=== PATIENT | female | born 1970 | race Two or more races ===

== ENCOUNTER 2019-06-11 13:34 | Inpatient (IN) | payer OTHER ==
[~2019-06-11] VITALS: Ht 160 cm; Wt 60.9 kg
[2019-06-11] MEDS ORDERED: IV NS 0.9% 1,000 ML BAG IV ONE ×2 (14:30→16:00)
[2019-06-11 14:57] LABS: BASOPHILS % (AUTO) 0.5 % (0.0-2.0); EOSINOPHILS % (AUTO) 0.7 % (0.0-6.0); HEMATOCRIT 41 % (33-45); LYMPHOCYTES # (AUTO) 3.5 /CMM (0.8-4.8); LYMPHOCYTES % (AUTO) 43.5 % (20.0-44.0); MEAN CORPUSCULAR HGB CONC 35 g/dl (31.0-36.0); MEAN CORPUSCULAR VOLUME 99 fL (82-100); MONOCYTES # (AUTO) 0.6 /CMM (0.1-1.30); NEUTROPHILS # (AUTO) 3.9 /CMM (1.8-8.9); NEUTROPHILS % (AUTO) 48.3 % (43.0-81.0); PLATELET COUNT (AUTO) 144 /CMM (150-450); WHITE BLOOD COUNT (AUTO) 8.1 K/uL (4.3-11.0)
[2019-06-11 15:03] LABS: CALCIUM, SERUM 9.7 mg/dL (8.5-10.1); CREATININE 0.8 mg/dL (0.6-1.3); POTASSIUM 4.6 mmol/L (3.5-5.1)
[2019-06-11 15:09] LABS: ALBUMIN 3.8 g/dL (3.4-5.0); BILIRUBIN,DIRECT 0.1 mg/dL (0.0-0.2); BILIRUBIN,TOTAL 0.6 mg/dL (0.2-1.0); TOTAL PROTEIN, SERUM 7.8 g/dL (6.4-8.2)
[2019-06-11] MEDS ORDERED: ONDANSETRON HCL/PF 4 MG/2 ML VIAL IVP ONE (16:00)
[2019-06-11] MEDS ORDERED: diphenhydrAMINE HCL 50 MG/ML VIAL IV ONE (16:00)
[2019-06-11] MEDS ORDERED: IBUPROFEN 600 MG TABLET PO ONE ×2 (16:00→16:37)
[2019-06-11] MEDS ORDERED: ACET-2030 PO (16:11)
--- NOTE | 2019-06-11 16:34 | NUR ---
[facility].
--- NOTE | 2019-06-11 16:34 | NUR ---
CALLED NURSING SUP FOR BED.
[2019-06-11] MEDS ORDERED: diphenhydrAMINE HCL 50 MG/ML VIAL ONE (16:36)
[2019-06-11] MEDS ORDERED: ONDANSETRON HCL/PF 4 MG/2 ML VIAL ONE (16:36)
--- NOTE | 2019-06-11 16:56 | NUR ---
Vandana rosales in [facility] - 06/11/19 at 1657 by NIK NURSING SUP [facility] BED [phone].
--- NOTE | 2019-06-11 16:57 | NUR ---
NURSING SUP GAVE MED/SURG BED [phone].
--- NOTE | 2019-06-11 17:09 | NUR ---
CORRECTION, PT GOING TO [phone].
[2019-06-11] MEDS ORDERED: IOHEXOL-350 100 ML VIAL IV ONE (17:16)
[2019-06-11] MEDS ORDERED: IV NS 0.9% 250 ML IV ONE (17:16)
[2019-06-11] MEDS ORDERED: CT SWABBABLE VALVE TRANS SET 1 EA INFUS.SET MC ONE (17:16)
--- NOTE | 2019-06-11 17:19 | NUR ---
REPORT GIVEN TO DECEMBER RN
[2019-06-11] MEDS ORDERED: ONDANSETRON HCL/PF 4 MG/2 ML VIAL IVP PRN (17:30)
[2019-06-11] MEDS ORDERED: MAGNESIUM HYDROXIDE 30 ML UDC PO PRN (17:30)
[2019-06-11] MEDS ORDERED: HYDROCODONE/APAP 5/325MG 1 EACH TABLET PO PRN (17:30)
[2019-06-11] MEDS ORDERED: MAG HYDROX/AL HYDROX/SIMETH 30 ML UDC PO PRN (17:30)
[2019-06-11] MEDS ORDERED: ACETAMINOPHEN 325 MG TABLET PO PRN (17:30)
[2019-06-11] MEDS ORDERED: ZOLPIDEM TARTRATE 5 MG TABLET PO PRN (17:30)
[2019-06-11] MEDS ORDERED: Z GUARD REMEDY 2 OZ OINT TP PRN (17:30)
--- NOTE | 2019-06-11 18:24 | NUR ---
PT IN CT RE STARTED IV LEFT AC 20G AND LEFT WRIST 20G
--- NOTE | 2019-06-11 18:59 | NUR ---
PT BACK FROM CT EATING DINNER WITH FAMILY AT BEDSIDE
--- NOTE | 2019-06-11 19:31 | NUR ---
PT TRANSPORTED UP VIA ACLS PROTOCOL
--- NOTE | 2019-06-11 19:35 | NUR ---
RN MS OPENING NOTES Received Pt. from ER via o[place]. Family at bedside. Patient is alert and oriented x2, verbally responsive, able to make needs known. Confused as to where she is. Speech is slightly slow and slurred but able to be understood. Per sister, her speech has been like that for 2 weeks now. Breathing even and unlabored. No SOB noted. Tolerating room air. IV on left AC and left wrist intact and patent. Denies pain or discomfort. States that pain medication from ER helped. Skin check rendered with no skin issues noted. Patient is ambulatory with 1 person assist/standby. Bedside commode provided. Oriented to the use of unit amenities. Instructed on the use of call light. Belongings accounted for. All other needs attended to. Safety measures in place. Call light within reach. Will continue to monitor.
[2019-06-11 20:00] VITALS: BP 117/72
[2019-06-12 03:07] LABS: APPEARANCE,URINE Clear (CLEAR); BILIRUBIN,URINE Negative (NEGATIVE); BLOOD, URINE Trace-intact Ery/uL (NEGATIVE); COLOR,URINE Yellow (YELLOW); KETONES,URINE Negative (NEGATIVE); LEUKOCYTE ESTERASE ,URINE Negative (NEGATIVE); NITRITE, URINE Negative (NEGATIVE); PROTEIN,URINE Negative (NEGATIVE); UGLUCOSE Negative (NEGATIVE); UROBILINOGEN,URINE 0.2 EU/dL (0.2)
[2019-06-12 04:06] LABS: BACTERIA,URINE Few /HPF (None Seen); RBC,URINE 0-2 /HPF (0-2); SQUAMOUS EPITHELIAL CELL,UR Few /HPF (None Seen)
--- NOTE | 2019-06-12 06:44 | NUR ---
RN MS CLOSING NOTES PATIENT RESTING IN BED. NO ACUTE CHANGES THROUGHOUT SHIFT. BREATHING EVEN AND UNLABORED. NO SOB NOTED - ON ROOM AIR. NO COMPLAINTS OF PAIN OR DISCOMFORT. IV ON LEFT WRIST/AC INTACT AND PATENT. REMAINED AFEBRILE. KEPT CLEAN DRY AND COMFORTABLE. ALL OTHER NEEDS ATTENDED TO. SAFETY MEASURES IN PLACE. CALL LIGHT WITHIN REACH. WILL ENDORSE TO ONCOMING NURSE FOR RILEY.
--- NOTE | 2019-06-12 06:45 | NUR ---
FYI: PATIENT ABLE TO AMBULATE TO RESTROOM WITH STAND BY ASSIST. REFUSES BEDSIDE COMMODE.
[2019-06-12 07:00] VITALS: BP 110/53
[2019-06-12 07:21] LABS: BASOPHILS % (AUTO) 0.2 % (0.0-2.0); EOSINOPHILS % (AUTO) 0.5 % (0.0-6.0); HEMATOCRIT 38 % (33-45); HEMOGLOBIN 12.9 g/dL (11.5-14.8); LYMPHOCYTES # (AUTO) 2.8 /CMM (0.8-4.8); LYMPHOCYTES % (AUTO) 40.8 % (20.0-44.0); MEAN CORPUSCULAR HGB CONC 34 g/dl (31.0-36.0); MEAN CORPUSCULAR VOLUME 99 fL (82-100); MONOCYTES # (AUTO) 0.5 /CMM (0.1-1.30); MONOCYTES % (AUTO) 7.4 % (2.0-12.0); NEUTROPHILS # (AUTO) 3.5 /CMM (1.8-8.9); NEUTROPHILS % (AUTO) 51.1 % (43.0-81.0); PLATELET COUNT (AUTO) 184 /CMM (150-450); RED BLOOD CELL COUNT(AUTO) 3.89 MIL/uL (4.0-5.2); WHITE BLOOD COUNT (AUTO) 6.8 K/uL (4.3-11.0)
--- NOTE | 2019-06-12 07:23 | NUR ---
RN OPENING NOTE PT WAS RECEIVED IN BED AT LOWEST AND LOCKED POSITION WITH SIDE RAILS UP X2, A/O X2 CONFUSED WITH SLIGHT SLURRED SPEECH, BREATHING EVEN AND UNLABORED ON RA WITH NO S/S OF ANY DISTRESS OR PAIN ATY THIS TIME, IV IS PATENT AND INTACT, NOTED TO BE AMBULATORY WITH ASSIST, SAFETY PRECAUTIONS IN PLACE, CALL LIGHT WITHIN REACH, WILL MONITOR ACCORDINGLY
[2019-06-12 07:39] LABS: CALCIUM, SERUM 8.7 mg/dL (8.5-10.1); CREATININE 0.7 mg/dL (0.6-1.3); MAGNESIUM 2.2 mg/dL (1.8-2.4); PHOSPHORUS 3.9 mg/dL (2.5-4.9); POTASSIUM 3.8 mmol/L (3.5-5.1)
[2019-06-12] MEDS: ASPIRIN EC 325 MG TABLET.DR PO SCH (08:03)
--- NOTE | 2019-06-12 12:40 | NUR ---
RN NOTE CALL RECEIVED FROM [facility] FROM REGARDING MRI WITHOUT CONTRAST THAT WAS DONE. WAS INFORMED THAT PATIENT DOES HAVE SOME SLIGHT SWELLING IN THE BRAIN BUT THAT IT IS NOT INDICATIVE OF STROKE BUT INSTEAD CAN BE FROM POSSIBLE OVERDOSE. HE WAS INFORMED THAT NO TOXICOLOGY SCREENING WAS DONE UPON ADMISSION. RESULTS OF MRI WERE RELAYED TO DR. VILLALOBOS WHO ORDERED EEG AND MRI OF BRAIN WITH CONTRAST AND THAT PATIENT MAY REQUIRE POSSIBLE LUMBAR PUNCTURE. ORDERS IMPLEMENTED AND CARRIED OUT. WILL MONITOR ACCORDINGLY
--- NOTE | 2019-06-12 14:26 | NUR ---
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 MESSAGE SENT TO , WILL AWAIT FOR ANY NEW ORDERS.
--- NOTE | 2019-06-12 15:17 | NUR ---
RN NOTE CALLED RECEIVED FROM FOR STAT LUMBAR PUNCTURE. RADIOLOGY CALLED AND INFORMED OF STAT ORDER. PER RADIOLOGY NEED STAT PTT AND PT/INR. WILL IMPLEMENT ORDERS AND CARRY OUT
--- NOTE | 2019-06-12 15:46 | NUR ---
RN NOTE CALL RECEIVED FROM RADIOLOGY MIRIAM WHO STATED THAT THE RADIOLOGIST WILL NOT BE ABLE TO DO LUMBAR PUNCTURE AFTER 4 PM IF RESULTS FOR PTT AND PT/INR ARE NOT POSTED BY THEN. WILL INFORM NEUROLOGIST AND WILL CONTINUE TO MONITOR ACCORDINGLY
[2019-06-12 16:08] VITALS: BP 108/64
--- NOTE | 2019-06-12 16:12 | NUR ---
RN NOTE CALL RECEIVED FROM RADIOLOGIST WHO STATED THAT HE CANNOT DO THE PROCEDURE TILL TOMORROW DUE TO ANTICOAG RESULTS STILL PENDING AND ALSO BECAUSE THEY ARE SHORT STAFFED. RADIOLOGIST STATED THAT PROCEDURE WILL BE INSTEAD DONE TOMORROW AM.
[2019-06-12] MEDS ORDERED: GADOTERIDOL 279.3 MG/ML VIAL IV ONE (16:34)
--- NOTE | 2019-06-12 17:30 | NUR ---
RN NOTE INFORMED BY MACHINERY MECHANIC DIANE THAT WILL BE COMING AROUND 7 TO PERFORM THE LUMBAR PUNCTURE AND THAT THE PATIENT WILL BE ISOLATION PRECAUTIONS FOR NOW
--- NOTE | 2019-06-12 18:41 | NUR ---
RN CLOSING NOTE PT IN BED AT LOWEST AND LOCKED POSITION WITH SIDE RAILS UP X2, A/O X2-3 CONFUSED, BREATHING EVEN AND UNLABORED ON RA WITH NO S/S OF ANY DISTRESS OR PAIN AT THIS TIME, IV IS PATENT AND INTACT, SAFETY PRECAUTIONS IN PLACE, CALL LIGHT WITHIN REACH, ALL NEEDS ATTENDED TO, WILL ENDORSE TO NIGHT RN FOR RILEY.
[2019-06-12 20:00] VITALS: BP 105/63
--- NOTE | 2019-06-12 20:09 | NUR ---
MS/RN PATIENT IS AWAKE, ALERT, ORIENTED, COMFORTABLE, NO C/O PAIN, NO DISTRESS NOTED, CALL LIGHT IN REACH, FAMILY MEMBERS AT BEDSIDE, WILL MONITOR.
[2019-06-12] MEDS ORDERED: QUETIAPINE FUMARATE 25 MG TABLET PO ONE (22:00)
--- NOTE | 2019-06-12 23:04 | NUR ---
MS/RN AT AROUND 2029, ASSISTER DR. MITA CANO FOR LUMBAR PUNCTURE WHICH THE PATIENT TOLERATED WELL. CSF SPECIMEN WAS BROUGHT BY MYSELF TO LAB.
--- NOTE | 2019-06-12 23:08 | NUR ---
MS/RN PATIENT REFUSED THE SEROQUEL, PER PATIENT SHE WILL LET ME KNOW IF SHE WANTS IT LATER.
[2019-06-12 23:12] LABS: CSF GLUCOSE 47 mg/dL (40-70); CSF PROTEIN 52.1 mg/dL (15-45)
--- NOTE | 2019-06-13 00:38 | NUR ---
MS/RN NOTIFIED DR. MITA CANO THE CSF TEST RESULTS. NO ORDERS RECEIVED.
--- NOTE | 2019-06-13 00:39 | NUR ---
MS/RN PATIENT IS SLEEPING AT THIS TIME, APPEAR COMFORTABLE, NO SIGNS OF DISTRESS NOTE, CALL LIGHT IN REACH. WILL MONITOR.
--- NOTE | 2019-06-13 06:19 | NUR ---
MS/RN STILL SLEEPING, APPEAR COMFORTABLE, NO SIGNS OF DISTRESS NOTED, CALL LIGHT IN REACH. ALL NEEDS ATTENDED AT THIS TIME, WILL CONTINUE TO MONITOR.
[2019-06-13 06:30] LABS: BASOPHILS % (AUTO) 0.1 % (0.0-2.0); EOSINOPHILS % (AUTO) 0.5 % (0.0-6.0); HEMATOCRIT 37 % (33-45); HEMOGLOBIN 12.8 g/dL (11.5-14.8); LYMPHOCYTES # (AUTO) 2.6 /CMM (0.8-4.8); LYMPHOCYTES % (AUTO) 40.8 % (20.0-44.0); MEAN CORPUSCULAR HGB CONC 34 g/dl (31.0-36.0); MEAN CORPUSCULAR VOLUME 98 fL (82-100); MONOCYTES # (AUTO) 0.5 /CMM (0.1-1.30); MONOCYTES % (AUTO) 8.2 % (2.0-12.0); NEUTROPHILS # (AUTO) 3.3 /CMM (1.8-8.9); NEUTROPHILS % (AUTO) 50.4 % (43.0-81.0); PLATELET COUNT (AUTO) 183 /CMM (150-450); RED BLOOD CELL COUNT(AUTO) 3.83 MIL/uL (4.0-5.2); WHITE BLOOD COUNT (AUTO) 6.5 K/uL (4.3-11.0)
[2019-06-13 06:37] LABS: CALCIUM, SERUM 8.8 mg/dL (8.5-10.1); CREATININE 0.6 mg/dL (0.6-1.3); POTASSIUM 3.7 mmol/L (3.5-5.1)
--- NOTE | 2019-06-13 07:15 | NUR ---
RN OPENING NOTE PT WAS RECEIVED IN BED AT LOWEST AND LOCKED POSITION WITH SIDE RAILS UP X2, A/O X2 CONFUSED WITH SLIGHT SLURRED SPEECH, BREATHING EVEN AND UNLABORED ON RA WITH NO S/S OF ANY DISTRESS OR PAIN AT THIS TIME, IV IS PATENT AND INTACT, NOTED TO BE AMBULATORY WITH ASSIST, ON ISOLATION PRECAUTIONS, SAFETY PRECAUTIONS IN PLACE, CALL LIGHT WITHIN REACH, WILL MONITOR ACCORDINGLY
[2019-06-13 08:00] VITALS: BP 114/72
[2019-06-13] MEDS: ASPIRIN EC 325 MG TABLET.DR PO SCH (08:01)
[2019-06-13] MEDS ORDERED: ACYCLOVIR IV 1 GM in IV NS 0.9% 250 ML IV SCH (08:30)
[2019-06-13] MEDS ORDERED: VANCOMYCIN 1 GM in IV NS 0.9% 250 ML IV SCH (08:30)
[2019-06-13] MEDS ORDERED: FEE PK DOSING 1 MIN EA MC ONE ×2 (08:41)
[2019-06-13] MEDS: CEFTRIAXONE 2 G in IV D5W 100 ML IV SCH (09:59)
[2019-06-13] MEDS: VANCOMYCIN 1 GM in IV D5W 250 ML IV SCH ×2 (10:46→17:31)
[2019-06-13] MEDS ORDERED: ACYCLOVIR IV SCH (12:00)
[2019-06-13] MEDS ORDERED: D5W IV SCH (12:00)
--- NOTE | 2019-06-13 12:51 | NUR ---
SW received a call from sample case porter Peggy stating pt's family is requesting a verification of admission letter for pt's employer. SW typed letter and gave copy to pt's family bedside per their request.
[2019-06-13 16:00] VITALS: BP 83/61
--- NOTE | 2019-06-13 18:43 | NUR ---
RN CLOSING NOTE PT IN BED AT LOWEST AND LOCKED POSITION WITH SIDE RAILS UP X2, A/O X2 CONFUSED WITH SLIGHT SLURRED SPEECH, BREATHING EVEN AND UNLABORED ON WITH NO DISTRESS OR PAIN AT THIS TIME, IV IS PATENT AND INTACT, FAMILY AT BEDSIDE, SAFETY PRECAUTIONS IN PLACE, CALL LIGHT WITHIN REACH, ALL NEEDS ATTENDED TO, WILL ENDORSE TO NIGHT RN FOR RILEY.
--- NOTE | 2019-06-13 20:09 | NUR ---
MS/RN AT 1930, RECEIVED PATIENT IN BED AWAKE, ALERT, ORIENTED, COMFORTABLE, NO C/O ANY PAIN, NO DISTRESS NOTED, CALL LIGHT IN REACH, FALL PRECAUTION PER PROTOCOL, WILL MONITOR.
[2019-06-13 20:18] VITALS: BP 101/40
[2019-06-13] MEDS: ACYCLOVIR IV 500 MG in IV D5W 100 ML IV SCH (21:03)
[2019-06-14] MEDS: VANCOMYCIN 1 GM in IV D5W 250 ML IV SCH ×3 (01:53→10:00)
[2019-06-14] MEDS: ACYCLOVIR IV 500 MG in IV D5W 100 ML IV SCH ×3 (04:55→21:00)
--- NOTE | 2019-06-14 05:49 | NUR ---
MS/RN PATIENT REFUSED MORNING CARE, REFUSED BED SHEET CHANGE.
--- NOTE | 2019-06-14 06:21 | NUR ---
MS/RN PATIENT IS STILL SLEEPING AT THIS TIME, APPEAR COMFORTABLE, NO SIGNS OF DISTRESS NOTED, CALL LIGHT IN REACH. ALL NEEDS ATTENDED AT THIS TIME, WILL CONTINUE TO MONITOR.
[2019-06-14 06:46] LABS: CALCIUM, SERUM 8.9 mg/dL (8.5-10.1); CREATININE 0.7 mg/dL (0.6-1.3); POTASSIUM 3.8 mmol/L (3.5-5.1)
--- NOTE | 2019-06-14 07:44 | NUR ---
MS RN OPENING NOTES RECEIVED PT SITTING UP IN BED, AWAKE, ALERT AND ORIENTED X3. RESPIRATIONS ARE EVEN AND UNLABORED, NOT IN ANY ACUTE DISTRESS NOTED. DENIES ANY PAIN AT THIS TIME, NO SOB, N/V. IV SITE TO LAC/L WRIST G20 INTACT, NO INFILTRATION NOTED. DRESSING KEPT CLEAN AND DRY. SAFETY MEASURES ARE IN PLACE. INSTRUCTED PT TO USE CALL LIGHT WHEN ASSISTANCE IS NEEDED, CALL LIGHT IS LEFT WITHIN REACH. WILL MONITOR THROUGHOUT SHIFT FOR CONTINUITY OF CARE.
[2019-06-14 08:00] VITALS: BP 82/52
[2019-06-14] MEDS: DEXAMETHASONE SOD PHOSPHATE 10 MG/ML VIAL IV SCH (08:22)
[2019-06-14] MEDS: ASPIRIN EC 325 MG TABLET.DR PO SCH (08:22)
[2019-06-14] MEDS: CEFTRIAXONE 2 G in IV D5W 100 ML IV SCH (08:22)
--- NOTE | 2019-06-14 10:00 | NUR ---
MS RN NOTES-- VANCO TROUGH CAME BACK AT 36. VANCO WITHHELD. WAITING FOR PHARMACY TO DOSE.
[2019-06-14 12:07] LABS: HIV SCRN 4G wRFX Non Reactive (Non Reactive)
--- NOTE | 2019-06-14 12:21 | NUR ---
MS RN NOTES-- PT ABLE TO MAKE NEEDS KNOWN, NEEDS MET AND ANTICIPATED. PT DOES NOT APPEAR TO BE IN ANY APPARENT DISTRESS. REMINDED PT TO USE CALL LIGHT WHEN ASSISTANCE IS NEEDED, CALL LIGHT IS LEFT WITHIN REACH. WILL CONTINUE TO MONITOR THROUGHOUT SHIFT FOR CONTINUITY OF CARE.
--- NOTE | 2019-06-14 13:34 | NUR ---
MS RN NOTES-- CLARIFIED NPO ORDER WITH DR. WESLEY. RELAYED US ABD RESULTS W/ ORDERS TO RESUME DIET.
[2019-06-14 16:00] VITALS: BP 96/54
--- NOTE | 2019-06-14 18:02 | NUR ---
MS RN NOTES-- NEW PERIPHERAL IV INSERTED TO RIGHT HAND G22. NO INFILTRATION. DRESSING KEPT CLEAN AND DRY. WILL CONTINUE TO MONITOR.
--- NOTE | 2019-06-14 18:41 | NUR ---
MS RN CLOSING NOTES ALL DUE MEDS GIVEN, NEEDS MET AND RENDERED. PT IS A/O X2-3, W/ PERIODS OF CONFUSION/FORGETFULNESS. AFEBRILE. RESPIRATIONS ARE EVEN AND UNLABORED, NOT IN ANY ACUTE DISTRESS NOTED. PT DENIES ANY PAIN AT THIS TIME, NO C/O SOB, N/V. IV SITE TO L HAND INTACT, NO INFILTRATION NOTED. DRESSING KEPT CLEAN AND DRY. SAFETY MEASURES ARE IN PLACE. REMINDED PT TO USE CALL LIGHT WHEN ASSISTANCE IS NEEDED, CALL LIGHT IS LEFT WITHIN REACH. WILL ENDORSE TO NEXT SHIFT FOR CONTINUITY OF CARE.
--- NOTE | 2019-06-14 19:30 | NUR ---
RN NOTES RECEIVED PT. AWAKE O BED, A/OX2-3, FAMILY AT BEDSIDE, ROMANSH/ENGLISH SPEAKING, NOT IN DISTRESS, NO PAIN NOTED, CALL LIGHT WITHIN REACH, SIDERAILSUPX2, CONTINUE TO MONITOR
[2019-06-14 20:00] VITALS: BP 111/65
[2019-06-14] MEDS ORDERED: VANCOMYCIN 0.75 GM in IV D5W 250 ML IV SCH (21:00)
[2019-06-14] MEDS ORDERED: CEFTRIAXONE 2 G in IV D5W 100 ML IV SCH (21:00)
--- NOTE | 2019-06-14 22:00 | NUR ---
RN NOTES PT. PULLED OUT HER IV LINE- ...NEW IV LINE INSERTED ON THE RIGHT FOREARM GAUGE 22
[2019-06-15] MEDS: ACYCLOVIR IV 500 MG in IV D5W 100 ML IV SCH (05:15)
--- NOTE | 2019-06-15 06:33 | NUR ---
RN NOTES SLEEPING BUT AROUSABLE, MORNING CARE RENDERED, NOT IN DISTRESS, NO PAIN NOTED, SIDERAILSUPX2, PT. NEEDS ATTENDED
[2019-06-15 06:55] LABS: CALCIUM, SERUM 8.7 mg/dL (8.5-10.1); CREATININE 0.7 mg/dL (0.6-1.3); POTASSIUM 3.9 mmol/L (3.5-5.1)
--- NOTE | 2019-06-15 07:24 | NUR ---
MS RN OPENING NOTES RECEIVED PT LAYING IN BED, AWAKE, ALERT AND ORIENTED X2. RESPIRATIONS ARE EVEN AND UNLABORED, NOT IN ANY ACUTE DISTRESS NOTED. DENIES ANY PAIN AT THIS TIME, NO SOB, N/V. IV SITE TO RFA G22 INTACT, NO INFILTRATION NOTED. DRESSING KEPT CLEAN AND DRY. SAFETY MEASURES ARE IN PLACE. INSTRUCTED PT TO USE CALL LIGHT WHEN ASSISTANCE IS NEEDED, CALL LIGHT IS LEFT WITHIN REACH. WILL MONITOR THROUGHOUT SHIFT FOR CONTINUITY OF CARE.
[2019-06-15 08:00] VITALS: BP 104/65
[2019-06-15 08:06] LABS: CANCER AG, 125 17.5 U/mL (0.0-38.1); CANCER AG, 15-3 17.1 U/mL (0.0-25.0)
[2019-06-15] MEDS: ASPIRIN EC 325 MG TABLET.DR PO SCH (08:17)
[2019-06-15] MEDS: DEXAMETHASONE SOD PHOSPHATE 10 MG/ML VIAL IV SCH (08:18)
[2019-06-15 09:07] LABS: *WEST NILE VIRUS IgG, CSF Positive (Negative)
[2019-06-15 11:09] LABS: *WEST NILE VIRUS IgM, CSF Negative (Negative); VDRL, CSF Non Reactive (Non Rea:<1:1)
--- NOTE | 2019-06-15 13:36 | NUR ---
MS RN NOTES-- PT ABLE TO MAKE NEEDS KNOWN BUT CAN BE CONFUSED AT TIMES. FAMILY IS AT BEDSIDE. PT DOES NOT APPEAR TO BE IN ANY APPARENT DISTRESS. WILL CONTINUE TO MONITOR.
[2019-06-15] MEDS: VALACYCLOVIR HCL 500 MG TABLET PO SCH ×2 (14:36→16:20)
[2019-06-15 16:15] VITALS: BP 85/47
--- NOTE | 2019-06-15 18:19 | NUR ---
MS SULLIVAN NOTES-- RECEIVED A CALL FROM ALBER AT [facility] TRANSFER UNIT [phone] OPT 3. NOTIFIED DERIK HARMON. Addendum: 06/15/19 at 1825 by PATRIZIA KNAPP RN PER ALBER FROM [facility], "THERES NOT INDICATION FOR TRANSFER, WE ARE CANCELLING THE REFERRAL."
--- NOTE | 2019-06-15 18:28 | NUR ---
MS SULLIVAN CLOSING NOTES ALL DUE MEDS GIVEN, NEEDS MET AND RENDERED. PT IS A/O X2-3, W/ PERIODS OF CONFUSION/FORGETFULNESS. AFEBRILE. RESPIRATIONS ARE EVEN AND UNLABORED, NOT IN ANY ACUTE DISTRESS NOTED. PT DENIES ANY PAIN AT THIS TIME, NO C/O SOB, N/V. IV SITE TO L HAND INTACT, NO INFILTRATION NOTED. DRESSING KEPT CLEAN AND DRY. SAFETY MEASURES ARE IN PLACE. REMINDED PT TO USE CALL LIGHT WHEN ASSISTANCE IS NEEDED, CALL LIGHT IS LEFT WITHIN REACH. WILL ENDORSE TO NEXT SHIFT FOR CONTINUITY OF CARE. Addendum: 06/15/191828 by PATRIZIA KNAPP RN CORRECTION: LFA G22 INTACT. Addendum: 06/15/191828 by PATRIZIA KNAPP RN CORRECTION: RFA, NOT LFA
--- NOTE | 2019-06-15 18:30 | NUR ---
MS RN NOTES-- PT WAS SEEN AND EXAMINED BY AVERY DEL ROSARIO READING INSTRUCTOR. PT IS POSITIVE FOR [facility] VIRUS. NOTIFIED NEGAR STEPHENS READING INSTRUCTOR, NO ISOLATION NEEDED.
--- NOTE | 2019-06-15 19:30 | NUR ---
RN NOTES RECEIVED PT. AWAKE ON BED SISTER AT BEDSIDE, NOT IN DISTRESS, A/OX2, NO PAIN NOTED, CALL LIGHT WITHIN REACH, SIDERAILSUPX2, CONTINUE TO MONITOR
[2019-06-15 20:00] VITALS: BP 111/67
--- NOTE | 2019-06-16 06:29 | NUR ---
RN NOTES AWAKE, SISTER AT BEDSIDE, NOT IN DISTRESS, NO PAIN NOTED, MORNING CARE RENDERED, CALL LIGHT WITHIN REACH, JUSTUSAILSUPX2, PT. NEEDS ATTENDED
[2019-06-16 07:30] VITALS: BP 121/76
[2019-06-16 07:37] LABS: CALCIUM, SERUM 9.7 mg/dL (8.5-10.1); CREATININE 0.9 mg/dL (0.6-1.3); POTASSIUM 4.1 mmol/L (3.5-5.1)
--- NOTE | 2019-06-16 08:00 | NUR ---
MS RN NOTES PATIENT ALERT, ORIENTED X 2. PATIENT DENIES ANY PAIN. PERIPHERAL IV INTACT PATENT. BED IN LOW LOCKED POSITION. CALL LIGHT WITHIN REACH. WILL CONTINUE TO MONITOR.
[2019-06-16] MEDS: VALACYCLOVIR HCL 500 MG TABLET PO SCH ×2 (08:39→13:10)
[2019-06-16] MEDS: DEXAMETHASONE SOD PHOSPHATE 10 MG/ML VIAL IV SCH (08:39)
[2019-06-16] MEDS: ASPIRIN EC 325 MG TABLET.DR PO SCH (08:39)
[2019-06-16] MEDS ORDERED: DEXAMETHASONE SOD PHOSPHATE 10 MG/ML VIAL IV SCH (09:00)
[2019-06-16 10:09] LABS: *CRYPTOCOCCUS AG, CSF Negative (Negative)
[2019-06-16] MEDS: ENSURE ENLIVE 237 ML LIQUID (VANILLA) PO SCH ×2 (11:30→17:37)
[2019-06-16 16:13] VITALS: BP 120/60
--- NOTE | 2019-06-16 18:49 | NUR ---
MS RN NOTES PATIENT IN BED RESTING WITH FAMILY AT BEDSIDE. PATIENT ALERT, ORIENTED X2. DENIES ANY PAIN. PERIPHERAL IV INTACT PATENT. ALL DUE MEDICATIONS ADMINISTERED. ALL NEEDS MET. NO ACUTE CHANGES NOTED. WILL ENDORSE CARE TO PM SHIFT.
--- NOTE | 2019-06-16 19:05 | NUR ---
RN INITIAL NOTES: RECEIVED REPORT FROM ALEXANDRA SULLIVAN. PT IN BED, AWAKE, A/O X2, MET WITH FAMILY AT BED SIDE. PT APPEARS CALM AND COMFORTABLE AT THIS TIME. NO FACIAL GRIMACE NOTED. DISCUSSED TO PT AND FAMILY REGARDING PLAN FOR TRANSFER TO HIGHER LEVEL OF CARE/[facility], ACCEPTED BY NEURO MD, BUT AWAITING HOSPITAL ACCEPTANCE. QUESTIONS/CONCERNED WERE ANSWERED. WILL GIVE UPDATE ONCE HEARD FROM CASE MANAGEMENT AND [facility]. PT HAS RIGHT FA IV ACCESS, PATENT AND FLUSHING WELL, ON HL, COVERED WITH KERLIX FOR SAFETY. FAMILY WILLING TO STAY OVERNIGHT TO HELP CARE FOR THE PT. SAFETY PRECAUTIONS FOR FALL INITAITED, CALL LIGHT IN REACH, WILL CONTINUE MONITORING PT.
[2019-06-16 20:00] VITALS: BP 97/57
--- NOTE | 2019-06-16 20:30 | NUR ---
RN NOTES: RECEIVED CALL FROM FREDERICK FROM LAB, STATED [facility] [place] MADE BY DR DOYLE WAS ALREADY COMPLETED/TAKEN FEW DAYS AGO, AND WASS ENT TO LAB ADRIANA, AND RESULT WILL BE POSTED/RELEASE ON Wednesday. CONTACTED DR JAYMIE DOYLE AT [phone], NO ANSWER, DIRECTS THRU A VOICEMAIL, LEFT A MESSAGE.
--- NOTE | 2019-06-16 22:30 | NUR ---
RN NOTES: PROVIDED PT WITH SNACK, TUNA SAND WHICH, JELL O AND CRANBERRY JUICE. ATE 100%
--- NOTE | 2019-06-17 06:58 | NUR ---
RN CLOSING NOTES: PT IN BED, AWAKE, REMAINS A/O X2, AT BED SIDE. IV ACCESS REMAINS PATENT AND FLUSHING WELL, ON HL. NO EPISODE OF DIZZINESS, OR LIGHT HEADEDNESS NOTED THROUGHOUT THE SHIFT. AWAITING ACCEPTANCE TO [facility]. VS REMAINS STABLE, NEEDS ATTENDED. SAFETY PRECAUTIONS FOR FALL REMAINS ENGAGED, CALL LIGHT IN REACH, WILL ENDORSE TO DAY RN FOR CONTINUITY OF CARE.
--- NOTE | 2019-06-17 07:15 | NUR ---
MS RN NOTES PATIENT IN BED, ALERT ORIENTED X 2. NO ACUTE DISTRESS NOTED, BREATHING UNLABORED. NO SOB NOTED. IV ACCESS PATENT AND INTACT, NO REDNESS OR SWELLING NOTED. SAFETY MEASURES IN PLACE. CALL LIGHT WITHIN REACH. WILL CONTINUE TO MONITOR ACCORDINGLY.
[2019-06-17 07:49] LABS: CALCIUM, SERUM 8.9 mg/dL (8.5-10.1); CREATININE 0.9 mg/dL (0.6-1.3)
[2019-06-17 08:00] VITALS: BP 122/70
[2019-06-17] MEDS: ENSURE ENLIVE 237 ML LIQUID (VANILLA) PO SCH ×2 (08:29→16:21)
[2019-06-17] MEDS: ASPIRIN EC 325 MG TABLET.DR PO SCH (08:29)
[2019-06-17] MEDS: DEXAMETHASONE SOD PHOSPHATE 10 MG/ML VIAL IV SCH (08:29)
[2019-06-17 16:00] VITALS: BP 107/62
--- NOTE | 2019-06-17 19:00 | NUR ---
MS RN NOTES PATIENT IN BED, ALERT ORIENTED X 2. NO ACUTE DISTRESS NOTED, BREATHING UNLABORED. NO SOB NOTED. IV ACCESS PATENT AND INTACT, NO REDNESS OR SWELLING NOTED. DUE MEDICATIONS GIVEN, NO ASE NOTED.NEEDS ATTENDED AND ANTICIPATED. KEPT CLEAN DRY AND COMFORTABLE. SAFETY MEASURES IN PLACE. CALL LIGHT WITHIN REACH.AWAITING FOR TRANSFER TO [facility] FOR CONTINUATION OF TREATMENT. WILL ENDORSE TO NIGHT NURSE FOR CONTINUITY OF CARE.
--- NOTE | 2019-06-17 19:55 | NUR ---
MS RN NOTES RECEIVED PATIENT IN BED, ALERT ORIENTED X 2. NO SIGNS OF ACUTE DISTRESS NOTED, BREATHING UNLABORED. NO SOB NOTED. IV ACCESS PATENT AND INTACT, NO REDNESS OR SWELLING NOTED. SAFETY MEASURES IN PLACE. CALL LIGHT WITHIN REACH. PATIENT'S SISTER AT BEDSIDE AT THIS TIME, ALL NEEDS ANTICIPATED. WILL CONTINUE TO MONITOR ACCORDINGLY.
[2019-06-17 20:00] VITALS: BP 131/81
--- NOTE | 2019-06-18 06:47 | NUR ---
RN NOTES ALL NEEDS ATTENDED AND MET, ABLE TO REST AND SLEPT AT INTERVALS, AT BEDSIDE THROUGHOUT THE SHIFT, PATIENT DENIES ANY PAIN OR DISCOMFORT, ALL NEEDS ATTENDED, WILL ENDORSE TO AM NURSE FOR CONTINUITY OF CARE.
--- NOTE | 2019-06-18 07:24 | NUR ---
RN MS OPENING NOTES Patient received on room air, no sob noted, patient denies pain at this time. Patient able to speak clearly without any confusion at this time, speaks both sinhala and syriac. R FA #22 SL. Bed at the lowest setting, call light within reach, side rails up x2.
[2019-06-18 07:36] LABS: CALCIUM, SERUM 9.3 mg/dL (8.5-10.1); CREATININE 0.8 mg/dL (0.6-1.3)
[2019-06-18 08:00] VITALS: BP 121/74
[2019-06-18] MEDS: ASPIRIN EC 325 MG TABLET.DR PO SCH (08:22)
[2019-06-18] MEDS: DEXAMETHASONE SOD PHOSPHATE 10 MG/ML VIAL IV SCH (08:22)
[2019-06-18] MEDS: ENSURE ENLIVE 237 ML LIQUID (VANILLA) PO SCH ×2 (08:23→18:03)
[2019-06-18 16:00] VITALS: BP 104/59
--- NOTE | 2019-06-18 18:14 | NUR ---
RN MS CLOSING NOTES Patient remains on room air, a/o x2 and acts confused at times. Patient would often laugh after every sentence. R FA 22 SL remains patent at this time. Patient awaiting for transfer to [facility] at this time. Patient needs CD of radiology tests done to her prior to transfering to [facility]. All medications and needs met. Bed at the lowest setting, call ight within reach, side rails up x2. Will give report to NOC RN for RILEY bedside.
[2019-06-18 20:07] VITALS: BP 111/66
[2019-06-19 07:40] LABS: CALCIUM, SERUM 9.4 mg/dL (8.5-10.1); CREATININE 0.9 mg/dL (0.6-1.3); POTASSIUM 4.1 mmol/L (3.5-5.1)
--- NOTE | 2019-06-19 07:40 | NUR ---
M/S RN NOTES PATIENT AWAKE IN BED AND ON THE PHONE, NO RESPIRATORY DISTRESS NOTED, NO C/O PAIN AT THIS TIME. SKIN WARM TO TOUCH. IV ACCESS SITE INTACT AND PATENT. PATIENT'S NEEDS ATTENDED. BED ON LOWEST LOCKED POSITION, CALL LIGHT WITHIN REACH. WILL CONTINUE TO MONITOR.
[2019-06-19 08:00] VITALS: BP 114/78
[2019-06-19] MEDS: ASPIRIN EC 325 MG TABLET.DR PO SCH (08:25)
[2019-06-19] MEDS: DEXAMETHASONE SOD PHOSPHATE 10 MG/ML VIAL IV SCH (08:25)
[2019-06-19] MEDS: ENSURE ENLIVE 237 ML LIQUID (VANILLA) PO SCH ×2 (08:26→17:48)
[2019-06-19 16:00] VITALS: BP 104/65
--- NOTE | 2019-06-19 19:20 | NUR ---
M/S RN NOTES PATIENT AWAKE IN BED, FAMILY AT BEDSIDE, NO RESPIRATORY DISTRESS NOTED, NO C/O PAIN AT THIS TIME. SKIN WARM TO TOUCH. IV ACCESS SITE INTACT AND PATENT. PATIENT'S NEEDS ATTENDED. BED ON LOWEST LOCKED POSITION, CALL LIGHT WITHIN REACH. WILL ENDORSE TO ONCOMING NURSE.
--- NOTE | 2019-06-19 19:25 | NUR ---
RN MS OPENING NOTES RECEIVED PT IN BED, AWAKE, ALERT ORIENTED X4, EPISODES OF CONFUSION. BREATHING EVEN AND UNLABORED ON ROOM AIR, AND SON AT BESIDE. NO COMPLAINT OF PAIN OR DISCOMFORT AT THIS TIME, IV ACCESS ON THE RFA 22G SL. BED IN LOWEST LOCKED POSITION, CALL LIGHT WITHIN REACH AT ALL TIMES. WILL CONTINUE TO MONITOR FREQUENTLY.
[2019-06-19 20:00] VITALS: BP 110/63
--- NOTE | 2019-06-20 06:07 | NUR ---
RN MS CLOSING NOTES PT REMAINS IN BED, SLEEPING, EASILY AROUSED TO NAME CALL. BREATHING EVEN AND UNLABORED ON ROOM AIR. NO COMPLAINT OF PAIN OR DISCOMFORT AT THIS TIME, IV ACCESS ON THE RFA 22G SL. BED IN LOWEST LOCKED POSITION, CALL LIGHT WITHIN REACH AT ALL TIMES. WILL ENDORSE TO DAY NURSE FOR RILEY
[2019-06-20 08:00] VITALS: BP 118/71
[2019-06-20] MEDS: ENSURE ENLIVE 237 ML LIQUID (VANILLA) PO SCH ×2 (09:00→17:00)
[2019-06-20] MEDS ORDERED: DEXAMETHASONE SOD PHOSPHATE 10 MG/ML VIAL IV SCH (09:00)
[2019-06-20] MEDS: ASPIRIN EC 325 MG TABLET.DR PO SCH (10:37)
[2019-06-20 16:00] VITALS: BP 103/59
--- NOTE | 2019-06-20 19:05 | NUR ---
RN MS NOTES RECEIVED PT IN BED, AWAKE AND ABLE TO MAKE NEEDS KNOWN WITH FAMILY AT BEDSIDE. PT A/O X3 WITH PERIODS OF CONFUSION. RESPIRATIONS EVEN AND UNLABORED WITH NO S/S OF ACUTE DISTRESS OR SOB NOTED. NO COMPLAINTS OF PAIN AT THIS TIME. PT NOTED WITH IV ACCESS ON THE RFA 22G SL. SAFETY MEASURES IN PLACE WITH BED IN LOWEST LOCKED POSITION WITH SIDE RAILS UP X2. CALL LIGHT WITHIN REACH. WILL CONTINUE TO MONITOR.
--- NOTE | 2019-06-20 20:28 | NUR ---
RN MS DISCHARGE NOTES PT DISCHARGED WITH EMT VIA [facility] WITH FAMILY IN STABLE CONDITION A/O X3. PT DISCHARGED TO [facility] ROOM 6619. VSS. RESPIRATIONS EVEN AND UNLABORED WITH NO S/S OF ACUTE DISTRESS OR SOB NOTED. NO COMPLAINTS OF PAIN AT THIS TIME. PT NOTED WITH IV ACCESS ON THE LHAND 22G SL, AND BEING D/ETHAN WITH LINE. REPORT GIVEN TO CLEOPATRA BY MORNING RN. ATTEMPTED TO CALL [facility] NO ANSWER WILL ATTEMPT TO CALL BACK AGAIN. ID BAND REMOVED. Addendum: 06/20/19 at 2051 by NANO BAJWA RN DISCHARGE PAPERS SIGNED AND COPIES GIVEN TO PT.
== END 2019-06-20 20:28 | disposition short-term general hospital (02) | DRG 865 ==
LOC: ER 13:34 → MED 17:04
PROVIDERS: ADMIT Family Medicine; ATTEND Internal Medicine
PROC: 009U3ZX Drainage of Spinal Canal, Percutaneous Approach, Diagnostic (ICD-10-PCS; principal; 2019-06-12)
DX: A92.31 West Nile virus infection with encephalitis (principal); G93.41 Metabolic encephalopathy; E87.0 Hyperosmolality and hypernatremia; D69.6 Thrombocytopenia, unspecified; Z90.710 Acquired absence of both cervix and uterus; R74.8 Abnormal levels of other serum enzymes; R74.0 Nonspecific elevation of levels of transaminase and lactic acid dehydrogenase [LDH]; R40.2142 Coma scale, eyes open, spontaneous, at arrival to emergency department; R40.2252 Coma scale, best verbal response, oriented, at arrival to emergency department; R40.2362 Coma scale, best motor response, obeys commands, at arrival to emergency department; K76.0 Fatty (change of) liver, not elsewhere classified
CPT/HCPCS: 36415; 70450-TC; 70496-TC; 70498-TC; 70551-TC; 70552-TC; 71045-TC; 76700-TC; 80048-TC; 80061-TC; 80076-TC; 80202-TC; 81000-TC; 82378; 82962-TC; 83615-TC; 83690-TC; 83735-TC; 84100-TC; 84703-TC; 85025-TC; 85610-TC; 85730-TC; 86300; 86304; 86592; 86694; 86706; 86788; 86789; 86803; 87040-TC; 87070-TC; 87081-TC; 87086-TC; 87340; 87899; 89051-TC; 93307-TC; 93880-TC; 95819-TC; 97116-TC; 97530-TC; A9579; G0378; J0133; J0696; J1100; J1200; J2405; J3370; J7030; J7050; J7060; Q9967

== ENCOUNTER 2019-07-18 14:22 | Emergency (ER) | payer OTHER ==
[~2019-07-18] VITALS: Ht 162.6 cm; Wt 55.8 kg
[~2019-07-18 14:22] MED LIST: ACET-2030 PO
--- NOTE | 2019-07-18 14:33 | NUR ---
"mariah, c/o headache x 1 week, went to [facility] for same reason 2 days ago Dx with meningitis a month ago per son" PT AAOX4, -SOB, NAD NOTED, PT ON MONITOR, VSS ,PENDING MD MOON
--- NOTE | 2019-07-18 14:45 | NUR ---
PATRIA HER AT BEDSIDE FOR EVAL
[2019-07-18] MEDS ORDERED: DEXAMETHASONE SOD PHOSPHATE 10 MG/ML VIAL ONE (14:55)
[2019-07-18] MEDS ORDERED: KETOROLAC TROMETHAMINE INJ 30 MG/ML VIAL ONE (14:55)
[2019-07-18] MEDS ORDERED: PROCHLORPERAZINE EDISYLATE 10 MG/2 ML VIAL ONE (14:56)
[2019-07-18] MEDS ORDERED: diphenhydrAMINE HCL 50 MG/ML VIAL ONE (14:56)
[2019-07-18] MEDS ORDERED: DEXAMETHASONE SOD PHOSPHATE 4 MG/ML VIAL IV ONE (15:00)
[2019-07-18] MEDS ORDERED: IV NS 0.9% 1,000 ML BAG IV ONE (15:00)
[2019-07-18] MEDS ORDERED: diphenhydrAMINE HCL 50 MG/ML VIAL IV ONE (15:00)
[2019-07-18] MEDS ORDERED: PROCHLORPERAZINE EDISYLATE 10 MG/2 ML VIAL IVP ONE (15:00)
[2019-07-18] MEDS ORDERED: KETOROLAC TROMETHAMINE INJ 30 MG/ML VIAL IV ONE (15:00)
[2019-07-18 17:00] VITALS: BP 122/75
--- NOTE | 2019-07-18 17:23 | NUR ---
Patient discharged to home in stable condition. Written and verbal after care instructions given. Patient verbalizes understanding of instruction.
== END 2019-07-18 17:23 | disposition home or self-care (01) ==
LOC: ER 14:22
DX: R51 Headache (principal); A92.31 West Nile virus infection with encephalitis; Z90.710 Acquired absence of both cervix and uterus; Z90.49 Acquired absence of other specified parts of digestive tract; Z98.890 Other specified postprocedural states
CPT/HCPCS: 96374; 96375; 99283; J0780; J1100; J1200; J1885; J7030

== ENCOUNTER 2019-07-25 17:32 | Emergency (ER) | payer OTHER ==
[~2019-07-25] VITALS: Ht 157.5 cm; Wt 54.4 kg
[2019-07-25] MEDS ORDERED: SUMATRIPTAN SUCCINATE 6 MG/0.5 ML VIAL SQ ONE ×2 (18:28→18:30)
[2019-07-25] MEDS ORDERED: LORAZEPAM 1 MG TABLET ONE (18:29)
[2019-07-25] MEDS ORDERED: LORAZEPAM 1 MG TABLET PO ONE (18:30)
--- NOTE | 2019-07-25 18:40 | NUR ---
BIB FAMILY [facility] HOME, HEADACHE, LIGHT SENSITIVITY, INCREASING CONFUSION SINCE WEDNESDAY EVENING. PT AAOX3, VSS. RR EVEN & UNLABORED, DENIES CP, SOB, N/V @ THIS TIME. PT SEEN & EVAL'D BY DR. ROSE. MEDICATED ORDERED, PT IRENE WELL. FAMILY @ BS & WILL CONT TO MONITOR.
[2019-07-25 20:15] VITALS: BP 127/75
--- NOTE | 2019-07-25 20:15 | NUR ---
Patient discharged to home in stable condition. Written and verbal after care instructions given. Patient verbalizes understanding of instruction.
== END 2019-07-25 20:16 | disposition home or self-care (01) ==
LOC: ER 17:32
DX: R51 Headache (principal); G93.40 Encephalopathy, unspecified; Z90.49 Acquired absence of other specified parts of digestive tract; Z90.710 Acquired absence of both cervix and uterus; Z98.890 Other specified postprocedural states
CPT/HCPCS: 96372; 99283; J3030